=== PATIENT | male | born 1950 | race Caucasian/White ===

== ENCOUNTER 2017-10-04 08:04 | Day surgery (SDC) | payer MEDICARE, OTHER ==
[~2017-10-04 08:04] MED LIST: AMOX500; ATOR10 PO; CIPR500 PO; LISI20; METO50ER PO; OMEPRAZOLE MAGN20 MG; RXCODACET PO
[2017-11-24] MEDS ORDERED: OMEPRAZOLE MAGN20 MG PO (13:05)
== END 2017-10-04 10:35 | disposition home or self-care (01) ==
LOC: ORSCSDS 08:04
PROVIDERS: Internal Medicine Gastroenterology
PROC: 0DJD8ZZ Inspection of Lower Intestinal Tract, Via Natural or Artificial Opening Endoscopic (ICD-10-PCS; principal; 2017-10-04 09:15)
PROC: 0D758ZZ Dilation of Esophagus, Via Natural or Artificial Opening Endoscopic (ICD-10-PCS; principal; 2017-10-04 09:15)
PROC: 0DB58ZX Excision of Esophagus, Via Natural or Artificial Opening Endoscopic, Diagnostic (ICD-10-PCS; principal; 2017-10-04 09:15)
PROC: 0DB68ZX Excision of Stomach, Via Natural or Artificial Opening Endoscopic, Diagnostic (ICD-10-PCS; principal; 2017-10-04 09:15)
DX: K92.1 Melena (principal); K29.50 Unspecified chronic gastritis without bleeding; K22.8 Other specified diseases of esophagus; K21.9 Gastro-esophageal reflux disease without esophagitis; K64.8 Other hemorrhoids; K57.30 Diverticulosis of large intestine without perforation or abscess without bleeding; R13.10 Dysphagia, unspecified; I10 Essential (primary) hypertension; E78.5 Hyperlipidemia, unspecified; N40.0 Benign prostatic hyperplasia without lower urinary tract symptoms; Z79.899 Other long term (current) drug therapy
CPT/HCPCS: 88305; 88342; J7120

== ENCOUNTER 2017-10-25 11:03 | Emergency (ER) | payer MEDICARE, OTHER ==
[~2017-10-25] VITALS: Ht 182.9 cm; Wt 108.9 kg
[2017-10-25 11:40] LABS: BASOPHILS ABSOLUTE AUTO 0.05 K/mm3 (0.00-0.23); BASOPHILS PERCENT AUTO 1 % (0-2); EOSINOPHILS ABSOLUTE AUTO 0.47 K/mm3 (0.00-0.68); EOSINOPHILS PERCENT AUTO 9 % (0-6); Hematocrit 49.1 % (37.0-53.0); Hemoglobin 16.3 g/dL (13.5-17.5); IMMATURE GRAN ABSOLUTE AUTO 0.02 K/mm3 (0.00-0.10); IMMATURE GRAN PERCENT AUTO 0 % (0-1); LYMPHOCYTES ABSOLUTE AUTO 1.36 K/mm3 (0.84-5.20); LYMPHOCYTES PERCENT AUTO 26 % (21-46); MONOCYTES PERCENT AUTO 8 % (4-13); Mean Corpuscular HGB 29.7 pg (26.0-34.0); Mean Corpuscular HGB Conc 33.2 g/dL (31.5-36.5); Mean Corpuscular Volume 90 fL (80-100); Mean Platelet Volume 8.9 fL (9.1-12.4); NEUTROPHILS ABSOLUTE AUTO 2.99 K/mm3 (1.96-9.15); NEUTROPHILS PERCENT AUTO 57 % (41-73); Platelet Count 253 K/mm3 (150-400); RDW Coefficient Variation 12.8 % (11.7-14.2); RDW Standard Deviation 42.2 fL (35.1-46.3); Red Blood Cell Count 5.48 M/mm3 (4.30-5.90); White Blood Cell Count 5.29 K/mm3 (4.00-11.30)
[2017-10-25 12:04] LABS: Alanine Aminotransfer (ALT/SGP 39 U/L (12-78); Albumin, Blood 3.4 g/dL (3.4-5.0); Albumin/Globulin Ratio 0.9 (0.8-1.8); Alk Phos 74 U/L (50-136); Anion Gap 7 mmol/L (6-16); Aspartate Aminotrans (AST/SGOT 28 U/L (12-37); Bilirubin, Total 0.7 mg/dL (0.1-1.0); Blood Urea Nitrogen 19 mg/dL (8-24); Bun/Creatinine Ratio 17.9 (12.0-20.0); CO2, Blood 26 mmol/L (21-32); Calcium, Blood 8.5 mg/dL (8.5-10.1); Chloride, Blood 109 mmol/L (98-108); Creatinine, Blood 1.06 mg/dL (0.60-1.20); Globulin, Blood 3.9 g/dL (2.2-4.0); Glomerular Filtration Rate >60 (60-); Glucose, Blood 97 mg/dL (70-99); Sodium, Blood 142 mmol/L (136-145); Total Protein, Blood 7.3 g/dL (6.4-8.2); Troponin I <0.015 ng/mL (0.000-0.040)
[2017-10-25] MEDS ORDERED: LOSA50 PO (13:12)
[2017-10-25] MEDS ORDERED: ELIQUIS5 MG PO (13:13)
[2017-11-24] MEDS ORDERED: OMEPRAZOLE MAGN20 MG PO (13:05)
== END 2017-10-25 13:32 | disposition home or self-care (01) ==
LOC: ER 11:03
PROVIDERS: Physician Assistant
DX: I10 Essential (primary) hypertension (principal); Z79.899 Other long term (current) drug therapy; I48.91 Unspecified atrial fibrillation; E78.5 Hyperlipidemia, unspecified
CPT/HCPCS: 36415; 71046; 80053; 83880; 84484; 85025; 93005; 93010; 99283

== ENCOUNTER 2017-11-27 06:23 | Day surgery (SDC) | payer MEDICARE, OTHER ==
[~2017-11-27] VITALS: Ht 182.9 cm; Wt 111.0 kg
[~2017-11-27 06:23] MED LIST changes: +ELIQUIS5 MG PO; +LOSA50 PO; +OMEPRAZOLE MAGN20 MG PO
== END 2017-11-27 23:18 | disposition home or self-care (01) ==
LOC: MHTC 06:23
PROC: 5A2204Z Restoration of Cardiac Rhythm, Single (ICD-10-PCS; principal; 2017-11-27)
DX: I48.91 Unspecified atrial fibrillation (principal)
CPT/HCPCS: 92960; 93005; 93010; J2250; J7120

== ENCOUNTER 2018-01-29 06:23 | Day surgery (SDC) | payer MEDICARE, OTHER ==
[~2018-01-29] VITALS: Ht 182.9 cm; Wt 111.0 kg
[2018-01-29] MEDS ORDERED: AMLO5 PO (06:50)
[2018-01-29] MEDS ORDERED: Amiodarone HCl200 MG PO (06:51)
[2018-01-29] MEDS ORDERED: NEBI5 PO (06:52)
== END 2018-01-29 22:47 | disposition home or self-care (01) ==
LOC: MHTC 06:23
PROC: 5A2204Z Restoration of Cardiac Rhythm, Single (ICD-10-PCS; principal; 2018-01-29)
DX: I48.91 Unspecified atrial fibrillation (principal); I10 Essential (primary) hypertension; E78.5 Hyperlipidemia, unspecified; E66.01 Morbid (severe) obesity due to excess calories
CPT/HCPCS: 92960; J7030

== ENCOUNTER 2020-09-02 22:03 | Emergency (ER) | payer MEDICARE, OTHER ==
[~2020-09-02] VITALS: Ht 182.9 cm; Wt 104.3 kg
[~2020-09-02 22:03] MED LIST changes: +AMLO5 PO; +Amiodarone HCl200 MG PO; +NEBI5 PO
[2020-09-02] MEDS ORDERED: AMLO5 PO (22:23)
[2020-09-02] MEDS ORDERED: ATOR20 PO (22:23)
[2020-09-02] MEDS ORDERED: OMEP20ER PO (22:23)
[2020-09-02] MEDS ORDERED: Diovan320 MG PO (22:23)
[2020-09-02] MEDS ORDERED: AMBIEN10 MG PO (22:23)
[2020-09-02] MEDS ORDERED: Prednisone50 MG PO (23:24)
[2020-09-02] MEDS ORDERED: EPIPEN 2-P0.3 MG/0.1 IM (23:24)
[2020-09-02] MEDS ORDERED: BENADRYL25 MG PO (23:24)
== END 2020-09-03 01:48 | disposition home or self-care (01) ==
LOC: ER 22:03
DX: T50.995A Adverse effect of other drugs, medicaments and biological substances, initial encounter (principal); R22.0 Localized swelling, mass and lump, head; I10 Essential (primary) hypertension; I48.91 Unspecified atrial fibrillation; E78.5 Hyperlipidemia, unspecified; Z79.899 Other long term (current) drug therapy
CPT/HCPCS: 99283; A9270; J1100

== ENCOUNTER 2023-02-15 14:27 | Observation (INO) | payer MEDICARE, OTHER ==
[~2023-02-15] VITALS: Ht 182.9 cm; Wt 102.3 kg
[~2023-02-15 14:27] MED LIST changes: +AMBIEN10 MG PO; +ASCO500 PO; +ASPI81CH PO; +ATOR20 PO; +BENADRYL25 MG PO; +CEPH500 PO; +Diovan320 MG PO; +EPIPEN 2-P0.3 MG/0.1 IM; +ERGO400 PO; +KRILL OIL 1,001 EACH PO; +OMEP20ER PO; +PYRI100 PO; +Percocet 5-3251 EACH PO; +Prednisone50 MG PO
[2023-02-15 18:45] LABS: BASOPHILS ABSOLUTE AUTO 0.07 K/mm3 (0.00-0.23); BASOPHILS PERCENT AUTO 1 % (0-2); EOSINOPHILS ABSOLUTE AUTO 0.45 K/mm3 (0.00-0.68); EOSINOPHILS PERCENT AUTO 6 % (0-6); Hematocrit 43.4 % (37.0-53.0); Hemoglobin 14.5 g/dL (13.5-17.5); IMMATURE GRAN ABSOLUTE AUTO 0.02 K/mm3 (0.00-0.10); IMMATURE GRAN PERCENT AUTO 0 % (0-1); LYMPHOCYTES ABSOLUTE AUTO 1.31 K/mm3 (0.84-5.20); LYMPHOCYTES PERCENT AUTO 18 % (21-46); MONOCYTES ABSOLUTE AUTO 0.68 K/mm3 (0.16-1.47); MONOCYTES PERCENT AUTO 9 % (4-13); Mean Corpuscular HGB 30.1 pg (26.0-34.0); Mean Corpuscular HGB Conc 33.4 g/dL (31.5-36.5); Mean Corpuscular Volume 90 fL (80-100); Mean Platelet Volume 8.9 fL (9.1-12.4); NEUTROPHILS PERCENT AUTO 66 % (41-73); Platelet Count 255 K/mm3 (150-400); RDW Coefficient Variation 12.7 % (11.7-14.2); RDW Standard Deviation 41.9 fL (35.1-46.3); Red Blood Cell Count 4.82 M/mm3 (4.30-5.90); White Blood Cell Count 7.43 K/mm3 (4.00-11.30)
[2023-02-15 19:04] LABS: Albumin, Blood 3.5 g/dL (3.4-5.0); Albumin/Globulin Ratio 0.8 (0.8-1.8); Bilirubin, Total 0.5 mg/dL (0.1-1.0); Bun/Creatinine Ratio 25.2 (12.0-20.0); Calcium, Blood 8.8 mg/dL (8.5-10.1); Creatinine, Blood 1.07 mg/dL (0.60-1.20); Globulin, Blood 4.4 g/dL (2.2-4.0); Potassium, Blood 3.9 mmol/L (3.5-5.5); Total Protein, Blood 7.9 g/dL (6.4-8.2)
[2023-02-15 22:28] VITALS: BP 160/75
[2023-02-16 04:35] VITALS: BP 117/76
--- NOTE | 2023-02-16 06:06 | NUR ---
SHIFT SUMMARY REPORT FROM [facility] ED RN- PT BROUGHT TO ROOM WITH MARJORIE- PT REQUESTED AMBIEN TO SLEEP- CALL TO RT FOR PT IS REQUESTING CPAP- NS INFUSING LEFT AC- SPOKE WITH PT RE: CALLING FOR ASSISTANCE D/T KNEE PAIN, AND IV INFUSING- PT STATED UNDERSTANDING-PT SLEPT T/O NIGHT WITHOUT PROBLEMS- BED LOW POSITION, CALL LIGHT WITHIN REACH, BED ALARM IN PLACE
[2023-02-16 07:29] VITALS: BP 123/62
[2023-02-16] MEDS ORDERED: VISBIOME 112.51 EACH PO (12:03)
[2023-02-16] MEDS ORDERED: AMOCLA875 PO (12:03)
[2023-02-16] MEDS ORDERED: DOXY100 PO (12:04)
--- NOTE | 2023-02-16 12:30 | NUR ---
SHIFT SUMMARY/DISCHARGE PATIENT ADMITTED WITH CELLULITIS TO L KNEE. PATIENT STATES L KNEE IMPROVED, SWELLING AND REDNESS DECREASED. PATIENT UP AMBULATING AROUND ROOM INDEPENDENTLY. PATIENT DISCHARGED HOME. DISHCARGE INSTRUCTIONS REVIEWED WITH PATIENT AND . IV DC'D. BELONGINGS RETURNED TO PATIENT. ROOM CHECK DONE WITH PATIENT AND . PATIENT HAS APPOINTMENT WITH DR. DING AND TO FOLLOW UP WITH [facility] PROVIDERS.
== END 2023-02-16 12:57 | disposition home or self-care (01) ==
LOC: ER 14:27 → MEDS 14:28
PROVIDERS: Emergency Medicine; ADMIT Internal Medicine
DX: L03.116 Cellulitis of left lower limb (principal); M70.42 Prepatellar bursitis, left knee; I10 Essential (primary) hypertension; E78.5 Hyperlipidemia, unspecified; I48.0 Paroxysmal atrial fibrillation; K21.9 Gastro-esophageal reflux disease without esophagitis; Z79.899 Other long term (current) drug therapy; Z79.82 Long term (current) use of aspirin
CPT/HCPCS: 36415; 80053; 83605; 85025; 87040; 93971; 94660; 94762; 96361; 96365; 96366; 96367; 96375; 96376; 99284-25; A9270; G0378; J0690; J2270; J7030; S0077

== ENCOUNTER → 2023-03-07 | Outpatient (CLI) | payer MEDICARE, OTHER ==
[~2023-03-07] MED LIST changes: +AMOCLA875 PO; +DOXY100 PO; +VISBIOME 112.51 EACH PO
[2023-03-07 19:42] LABS: Alanine Aminotransfer (ALT/SGP 30 U/L (12-78); Albumin, Blood 3.8 g/dL (3.4-5.0); Alk Phos 96 U/L (50-136); Anion Gap 7 mmol/L (6-16); Aspartate Aminotrans (AST/SGOT 25 U/L (12-37); Bilirubin, Total 0.6 mg/dL (0.1-1.0); Blood Urea Nitrogen 25 mg/dL (8-24); Bun/Creatinine Ratio 26.5 (12.0-20.0); CHOL/HDL RATIO 3.8; CO2, Blood 27 mmol/L (21-32); Calcium, Blood 9.1 mg/dL (8.5-10.1); Chloride, Blood 109 mmol/L (98-108); Cholesterol 165 mg/dL (50-200); Creatinine, Blood 0.94 mg/dL (0.60-1.20); Globulin, Blood 3.7 g/dL (2.2-4.0); Glomerular Filtration Rate 87 (60-); Glucose, Blood 105 mg/dL (70-99); HDL Cholesterol 44 mg/dL (>39); Low Density Lipoprotein Chol 90 mg/dL (0-110); Sodium, Blood 143 mmol/L (136-145); Total Protein, Blood 7.5 g/dL (6.4-8.2); Triglycerides 157 mg/dL (30-160); Very Low Density Lipoprot Chol 31 mg/dL (6-32)
== END | disposition home or self-care (01) ==
LOC: LAB 09:13 → LAB SHORT 09:13
PROVIDERS: Family Medicine
DX: Z12.5 Encounter for screening for malignant neoplasm of prostate (principal); E78.5 Hyperlipidemia, unspecified
CPT/HCPCS: 80053; 80061; G0103